=== PATIENT | female | born 1985 | race Caucasian/White ===

== ENCOUNTER 2018-03-01 19:19 | Emergency (ER) | payer SELFPAY ==
[2018-03-01] MEDS ORDERED: LIDOCAINE 1% 20 ML MDV ONE (19:42)
[2018-03-01 20:38] LABS: Urine Blood NEGATIVE (NEG); Urine Glucose NEGATIVE (NEG); Urine Protein NEGATIVE (NEG); Urine Specific Gravity <1.005 (1.005-1.030)
--- NOTE | 2018-03-01 20:51 | ER ---
Nurse's Notes [facility] Name: Kathleen Fuentes Age: 32 yrs Sex: Female : 1985 Arrival Date: 03/01/2018 Time: 19:20 Bed 5 Private MD: Diagnosis: Laceration with foreign body of left thumb without damage to nail Presentation: 03/01 19:24 Transition of care: patient was not received from another setting of care. Onset of la1 symptoms was March 01, 2018. Care prior to arrival: None. 19:24 Method Of Arrival: Ambulatory la1 19:24 Acuity: SIMON 4 la1 19:25 Presenting complaint: Patient states: I was opening a can of beans and the lid cut my la1 left thumb. 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 - Social history:: Smoking status: Patient uses tobacco products, smokes one-half pack cigarettes per day. Screenin:36 Abuse screen: Denies threats or abuse. Denies injuries from another. Nutritional bp screening: No deficits noted. Tuberculosis screening: No symptoms or risk factors identified. Fall Risk None identified. Assessment: 19:30 General: Appears in no apparent distress. comfortable, Behavior is calm, cooperative, bp appropriate for age. Pain: Complains of pain in palmar aspect of distal phalanx of left thumb and palmar aspect of proximal phalanx of left thumb. Neuro: Level of Consciousness is awake, alert, obeys commands, Oriented to person, place, time, situation, Appropriate for age. Cardiovascular: No deficits noted. Respiratory: Airway is patent Respiratory effort is even, unlabored, Respiratory pattern is regular, symmetrical. GI: No signs and/or symptoms were reported involving the gastrointestinal system. : No signs and/or symptoms were reported regarding the genitourinary system. EENT: No deficits noted. Derm: No deficits noted. Musculoskeletal: Circulation, motion, and sensation intact. Range of motion: intact in all extremities. Injury Description: Laceration sustained to palmar aspect of distal phalanx of left thumb is clean, 0.5 to 2.5 cm long, not bleeding, a small amount of bleeding noted at this time. 20:30 Reassessment: REPAIR COMPLETE. PT TOLERATED WELL, DISPO PENDING. bp 20:59 Reassessment: PT D/C HOME AMBULATORY WITH FAMILY, DX WITH THUMB LACERATION WITHOUT NAIL bp INVOLVEMENT. Vital Signs: 19:24 Weight 54.43 kg; Height 5 ft. 3 in. (160.02 cm); la1 19:24 Pulse 104; Resp 19; Temp 97.9; Pulse Ox 98% on R/A; la1 19:26 BP 149 / 107; la1 20:40 BP 141 / 75; Pulse 99; Resp 18; Pulse Ox 99% on R/A; mt 19:24 Body Mass Index 21.26 (54.43 kg, 160.02 cm) la1 ED Course: 19:20 Patient arrived in ED. am2 19:24 Triage completed. la1 19:24 Arm band placed on left wrist. la1 19:31 Bandar Pillai, CIRILO is Primary Nurse. bp 19:33 Sunday Yang PA is PHCP. jr8 19:33 Carlos Eduardo Booth MD is Attending Physician. jr8 19:36 Patient has correct armband on for positive identification. Bed in low position. Call bp light in reach. Side rails up X2. Adult w/ patient. 19:46 Wound care: to laceration located on palmar aspect of distal phalanx of left thumb was bp soaked in Betadine solution, Patient tolerated well. 20:15 Assist provider with laceration repair on palmar aspect of distal phalanx of left thumb bp that was 2.5 cm. or less using sutures. Set up tray. Performed by Sunday EDMONDSON Dressed with Neosporin, Patient tolerated well. 20:20 X-ray completed. Portable x-ray completed in exam room. Patient tolerated procedure la2 well. 20:23 XRAY Hand LEFT 3 View In Process Unspecified. EDMS 20:47 Patient did not have IV access during this emergency room visit. bp 20:54 Wound care: was dressed with Neosporin, 4X4s. mt Administered Medications: 19:45 Drug: Lidocaine (1 %) 1 vials {Note: AT B/S FOR PROVIDER.} Volume: 20 ml; Route: bp Infiltration; Outcome: 20:50 Discharge ordered by . jr8 20:59 Discharged to home ambulatory, with family. bp 20:59 Condition: stable 20:59 Discharge instructions given to patient, Instructed on discharge instructions, follow up and referral plans. wound care, Demonstrated understanding of instructions, follow-up care, wound care. 21:00 Patient left the ED. bp Signatures: Dispatcher [employer] EDMS Sunday Yang PA PA jr8 Moises Kessler RN RN la1 Charito Buchanan Moriah mt Ardoin, Leslie la2 Bandar Pillai, CIRILO RN bp
--- NOTE | 2018-03-01 20:51 | EDPHYS ---
Physician Documentation [facility] Name: Kathleen Fuentes Age: 32 yrs Sex: Female : 1985 Arrival Date: 03/01/2018 Time: 19:20 Bed 5 Private MD: ED Physician Carlos Eduardo Booth HPI: 03/01 20:47 This 32 yrs old Female presents to ER via Ambulatory with complaints of Thumb jr8 Injury, Laceration To Hand. 20:47 The patient or guardian reports a laceration, clean, 3 cm(s), simple. The complaints jr8 affect the thumb of left hand. Onset: The symptoms/episode began/occurred acutely, today. Modifying factors: The symptoms are alleviated by nothing, the symptoms are aggravated by nothing. Associated signs and symptoms: The patient has no apparent associated signs or symptoms. Severity of symptoms: At their worst the symptoms were mild, in the emergency department the symptoms are unchanged. The patient has not experienced similar symptoms in the past. The patient has not recently seen a physician. Patient cut hand on open can . 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 - Social history:: Smoking status: Patient uses tobacco products, smokes one-half pack cigarettes per day. ROS: 20:47 Eyes: Negative for injury, pain, redness, and discharge, ENT: Negative for injury, jr8 pain, and discharge, Neck: Negative for injury, pain, and swelling, Cardiovascular: Negative for chest pain, palpitations, and edema, Respiratory: Negative for shortness of breath, cough, wheezing, and pleuritic chest pain, Abdomen/GI: Negative for abdominal pain, nausea, vomiting, diarrhea, and constipation, Back: Negative for injury and pain, MS/Extremity: Negative for injury and deformity, Neuro: Negative for headache, weakness, numbness, tingling, and seizure. 20:47 Skin: Positive for laceration(s), of the palmar aspect of distal phalanx of left thumb. Exam: 20:47 Cardiovascular: Regular rate and rhythm with a normal S1 and S2. No gallops, murmurs, jr8 or rubs. Normal PMI, no JVD. No pulse deficits. Respiratory: Lungs have equal breath sounds bilaterally, clear to auscultation and percussion. No rales, rhonchi or wheezes noted. No increased work of breathing, no retractions or nasal flaring. MS/ Extremity: Pulses equal, no cyanosis. Neurovascular intact. Full, normal range of motion. Neuro: Awake and alert, GCS 15, oriented to person, place, time, and situation. Cranial nerves II-XII grossly intact. Motor strength 5/5 in all extremities. Sensory grossly intact. Cerebellar exam normal. Normal gait. 20:47 Skin: injury, laceration(s), the wound is approximately 3 cm(s), with a depth of .5 cm(s), of the palmar aspect of distal phalanx of left thumb, that can be described as no foreign body, irregular, with mild bleeding. Vital Signs: 19:24 Weight 54.43 kg; Height 5 ft. 3 in. (160.02 cm); la1 19:24 Pulse 104; Resp 19; Temp 97.9; Pulse Ox 98% on R/A; la1 19:26 BP 149 / 107; la1 20:40 BP 141 / 75; Pulse 99; Resp 18; Pulse Ox 99% on R/A; mt 19:24 Body Mass Index 21.26 (54.43 kg, 160.02 cm) la1 Laceration: 20:47 Wound Repair of 3cm ( 1.2in ) subcutaneous laceration to palmar aspect of distal jr8 phalanx of left thumb. Irregularly shaped.. Minimal bleeding noted.. Distal neuro/vascular/tendon intact. Anesthesia: Local anesthetic administered with 5 mls of 1% lidocaine. Wound prep: Extensive cleansing with betadine, Wound irrigation with saline, Wound explored extensively. Skin closed with 8 4-0 Prolene using interrupted sutures and sterile technique. Patient tolerated well. MDM: 19:33 Patient medically screened. jr8 20:47 Data reviewed: vital signs, nurses notes, radiologic studies, plain films, and as a jr8 result, I will discharge patient. Data interpreted: Pulse oximetry: on room air is 99 %. Interpretation: normal. Counseling: I had a detailed discussion with the patient and/or guardian regarding: the historical points, exam findings, and any diagnostic results supporting the discharge/admit diagnosis, the need for outpatient follow up, a family practitioner, to return to the emergency department if symptoms worsen or persist or if there are any questions or concerns that arise at home. 03/01 20:09 Order name: Urine Dipstick--Ancillary (enter results); Complete Time: 20:38 rg2 03/01 19:42 Order name: XRAY Hand LEFT 3 View jr8 03/01 19:42 Order name: Prolene, Sutures; Complete Time: 19:46 jr8 03/01 19:42 Order name: Dressing - Wound; Complete Time: 19:46 jr8 03/01 19:42 Order name: Gloves, Sterile; Complete Time: 19:46 jr8 03/01 19:42 Order name: Setup Suture Tray; Complete Time: :46 8 Administered Medications: 19:45 Drug: Lidocaine (1 %) 1 vials {Note: AT B/S FOR PROVIDER.} Volume: 20 ml; Route: bp Infiltration; Disposition: 03/02 06:23 Co-signature as Attending Physician, Carlos Eduardo Booth MD. Disposition: 03/01/18 20:50 Discharged to Home. Impression: Laceration with foreign body of left thumb without damage to nail. - Condition is Stable. - Discharge Instructions: Laceration Care, Adult. - Work release form, Medication Reconciliation Form, Thank You Letter, Antibiotic Education, Prescription Opioid Use form. - Follow up: Private Physician; When: 7 - 10 days; Reason: Wound Recheck, Recheck today's complaints, Continuance of care, Staple/Suture removal, Re-evaluation by your physician. - Problem is new. - Symptoms have improved. Signatures: Dispatcher [employer] EDMS Sunday Yang PA PA jr8 Moises Kessler, RN RN la1 Carlos Eduardo Booth MD MD Bandar Pillai, RN RN bp
--- NOTE | 2018-03-01 21:06 | RAD REPORT ---
EXAM DESCRIPTION: RAD - Hand Left 3 View - 03/01/2018 8:23 pm CLINICAL HISTORY: Hand pain, laceration to the thumb COMPARISON: None. FINDINGS: No fracture, dislocation or periosteal reaction noted. No foreign body identified. Soft ti ssue injury is present. Soft tissue detail is limited by the bandaging artifact. IMPRESSION: No acute bone finding. No foreign body.
== END 2018-03-01 21:00 | disposition home or self-care (01) ==
LOC: ER 19:19
PROC: 0JQK0ZZ Repair Left Hand Subcutaneous Tissue and Fascia, Open Approach (ICD-10-PCS; principal; 2018-03-01)
DX: S61.012A Laceration without foreign body of left thumb without damage to nail, initial encounter (principal); W26.8XXA Contact with other sharp object(s), not elsewhere classified, initial encounter; Y93.9 Activity, unspecified; Y92.009 Unspecified place in unspecified non-institutional (private) residence as the place of occurrence of the external cause; F17.210 Nicotine dependence, cigarettes, uncomplicated
CPT/HCPCS: 81003; 99284

== ENCOUNTER 2018-03-11 10:02 | Emergency (ER) | payer SELFPAY ==
--- NOTE | 2018-03-11 10:37 | ER ---
Nurse's Notes [facility] Name: Kathleen Fuentes Age: 32 yrs Sex: Female : 1985 Arrival Date: 03/11/2018 Time: 10:03 Bed Waiting Private MD: Diagnosis: Encounter for removal of sutures Presentation: 03/11 10:22 Presenting complaint: Patient states: Here for suture removal. Sutures placed to left aj thumb 10 days ago. Denies pain. Transition of care: patient was not received from another setting of care. Onset of symptoms was March 11, 2018. Initial Sepsis Screen: Does the patient meet any 2 criteria? No. Patient's initial sepsis screen is negative. Does the patient have a suspected source of infection? No. Patient's initial sepsis screen is negative. Care prior to arrival: None. 10:22 Method Of Arrival: Ambulatory 10:22 Acuity: SIMON 5 Triage Assessment: 10:24 General: Appears in no apparent distress. comfortable, Behavior is calm, cooperative, aj appropriate for age. Pain: Denies pain. Neuro: Level of Consciousness is awake, alert, obeys commands, Oriented to person, place, time, situation, Appropriate for age. Respiratory: Airway is patent Respiratory effort is even, unlabored, Respiratory pattern is regular, symmetrical. Derm: Skin is intact, is healthy with good turgor, Skin is pink, warm \T\ dry. normal. 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 - Social history:: Smoking status: Patient/guardian denies using tobacco. Screenin:00 Abuse screen: Denies threats or abuse. Denies injuries from another. Nutritional ss screening: No deficits noted. Tuberculosis screening: No symptoms or risk factors identified. Fall Risk None identified. Assessment: 11:00 General: Appears in no apparent distress. comfortable. Pain: Denies pain. Neuro: Level ss of Consciousness is awake, alert, obeys commands. Respiratory: Airway is patent Respiratory effort is even, unlabored, Respiratory pattern is. EENT: Oral mucosa is moist. Derm: Skin is pink, warm \T\ dry. Musculoskeletal: Circulation, motion, and sensation intact. Range of motion: intact in all extremities. Vital Signs: 10:24 BP 144 / 89; Pulse 107; Resp 17; Temp 98.8; Pulse Ox 100% on R/A; Weight 61.23 kg; aj Height 5 ft. 4 in. (162.56 cm); Pain 0/10; 10:24 Body Mass Index 23.17 (61.23 kg, 162.56 cm) aj ED Course: 10:03 Patient arrived in ED. as 10:24 Triage completed. aj 10:24 Arm band placed on right wrist. Patient placed in waiting room, Patient Provider aj removed sutures in triage. 10:33 Bryanna Mariano FNP-C is PHCP. kb 10:33 Juan Walton MD is Attending Physician. kb 11:00 Patient has correct armband on for positive identification. ss 11:00 Patient did not have IV access during this emergency room visit. Removal of Removed ss sutures from palmar aspect of distal phalanx of left thumb Suture site is well healed Patient tolerated well. 11:17 No provider procedures requiring assistance completed. ss Administered Medications: No medications were administered Outcome: 10:37 Discharge ordered by MD. kb 11:17 Discharged to home ambulatory. ss 11:17 Condition: good 11:17 Discharge instructions given to patient, Instructed on discharge instructions, follow up and referral plans. Demonstrated understanding of instructions, follow-up care. 11:17 Patient left the ED. ss 11:29 No charge visit due to suture removal. ss Signatures: Bryanna Mariano FNP-C FNP-Charito Arias RN RN aj Martinez, Amelia as Smirch, Shelby, RN RN Corrections: (The following items were deleted from the chart) 11:16 11:00 Patient has correct armband on for positive identification. Bed in low position. ss Call light in reach. ss 11:29 11:17 Discharged to home ambulatory, ss ss
--- NOTE | 2018-03-11 10:38 | EDPHYS ---
Physician Documentation [facility] Name: Kathleen Fuentes Age: 32 yrs Sex: Female : 1985 Arrival Date: 03/11/2018 Time: 10:03 Bed Waiting Private MD: ED Physician Juan Walton HPI: 03/11 10:33 This 32 yrs old Female presents to ER via Ambulatory with complaints of kb Suture Removal. 10:33 The patient has sutures on the palmar aspect of distal phalanx of left thumb. Previous kb treatment: The patient was initially treated on March 01, 2018, the care was rendered at [facility], Treatment type: The patient's original treatment included sutures. Sutures/hailey progress: The patient has no c/o's. The wound is well-healing with no redness, swelling, discharge, or dehiscence reported. The patient has not experienced similar symptoms in the past. The patient has not recently seen a physician. 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 - Social history:: Smoking status: Patient/guardian denies using tobacco. ROS: 10:36 Constitutional: Negative for fever, chills, and weight loss, Cardiovascular: Negative kb for chest pain, palpitations, and edema, Respiratory: Negative for shortness of breath, cough, wheezing, and pleuritic chest pain, Abdomen/GI: Negative for abdominal pain, nausea, vomiting, diarrhea, and constipation, MS/Extremity: Negative for injury and deformity, Neuro: Negative for headache, weakness, numbness, tingling, and seizure. 10:36 Skin: Positive for of the palmar aspect of distal phalanx of left thumb, sutures. Exam: 10:36 Constitutional: This is a well developed, well nourished patient who is awake, alert, kb and in no acute distress. Head/Face: Normocephalic, atraumatic. Chest/axilla: Normal chest wall appearance and motion. Nontender with no deformity. No lesions are appreciated. Cardiovascular: Regular rate and rhythm with a normal S1 and S2. No gallops, murmurs, or rubs. Normal PMI, no JVD. No pulse deficits. Respiratory: Lungs have equal breath sounds bilaterally, clear to auscultation and percussion. No rales, rhonchi or wheezes noted. No increased work of breathing, no retractions or nasal flaring. Abdomen/GI: Soft, non-tender, with normal bowel sounds. No distension or tympany. No guarding or rebound. No evidence of tenderness throughout. Neuro: Awake and alert, GCS 15, oriented to person, place, time, and situation. Cranial nerves II-XII grossly intact. Motor strength 5/5 in all extremities. Sensory grossly intact. Cerebellar exam normal. Normal gait. 10:36 Skin: Wound recheck: Suture laceration closure: the wound is healing well, the edges are well approximated, no evidence of dehiscence, no drainage, no erythema, no swelling. Vital Signs: 10:24 BP 144 / 89; Pulse 107; Resp 17; Temp 98.8; Pulse Ox 100% on R/A; Weight 61.23 kg; aj Height 5 ft. 4 in. (162.56 cm); Pain 0/10; 10:24 Body Mass Index 23.17 (61.23 kg, 162.56 cm) aj Procedures: 10:35 Suture/Staple removal: Removed 8 sutures, from palmar aspect of distal phalanx of left kb thumb, site appears well healed, dressed with band aid, Neosporin, Patient tolerated well. MDM: 10:33 Patient medically screened. kb 10:35 Data reviewed: vital signs, nurses notes. Data interpreted: Pulse oximetry: on room air kb is 100 %. Interpretation: normal. Counseling: I had a detailed discussion with the patient and/or guardian regarding: the historical points, exam findings, and any diagnostic results supporting the discharge/admit diagnosis, the need for outpatient follow up, a family practitioner, to return to the emergency department if symptoms worsen or persist or if there are any questions or concerns that arise at home. Administered Medications: No medications were administered Disposition: 16:36 Co-signature as Attending Physician, Juan Walton MD. rn Disposition: 03/11/18 10:37 Discharged to Home. Impression: Encounter for removal of sutures. - Condition is Stable. - Discharge Instructions: Suture Removal, Care After. - Work release form, Medication Reconciliation Form, Thank You Letter, Antibiotic Education, Prescription Opioid Use form. - Follow up: Emergency Department; When: As needed; Reason: Worsening of condition. Follow up: Private Physician; When: 2 - 3 days; Reason: Recheck today's complaints, Continuance of care, Re-evaluation by your physician. Signatures: Bryanna Mariano, MARELY-C MARELY-Charito Arias RN RN aj Nieto, Roman, MD MD rn Smirch, Shelby, RN RN
== END 2018-03-11 11:17 | disposition home or self-care (01) ==
LOC: ER 10:02
DX: Z48.02 Encounter for removal of sutures (principal)